=== PATIENT | male | born 1955 | race Hispanic/Latino ===

== ENCOUNTER 2019-08-09 12:41 | Observation (INO) | payer SELFPAY ==
[~2019-08-09] VITALS: Ht 160 cm; Wt 77.9 kg
[2019-08-09] MEDS ORDERED: ASPIRIN 325 MG TABLET ONE (12:53)
[2019-08-09 13:29] LABS: BASOPHILS % (AUTO) 0.3 % (0.0-5.0); EOSINOPHILS % (AUTO) 2.4 % (0.0-8.0); HEMATOCRIT 44.6 % (42-54); LYMPHOCYTES % (AUTO) 24.2 % (21.0-51.0); MEAN CORPUSCULAR HEMOGLOBIN 29.2 pg (27.0-33.0); MEAN CORPUSCULAR HGB CONC 33.6 g/dL (32.0-36.0); MEAN CORPUSCULAR VOLUME 86.8 fL (79-99); MONOCYTES % (AUTO) 8.7 % (3.0-13.0); NEUTROPHILS % (AUTO) 64.1 % (40.0-77.0); PLATELET COUNT (AUTO) 164 K/uL (130-400); RED BLOOD CELL COUNT(AUTO) 5.14 MIL/uL (4.50-6.20); RED CELL DISTRIBUTION WIDTH 12.5 % (11.0-15.5); WHITE BLOOD COUNT (AUTO) 7.5 K/uL (4.8-10.8)
[2019-08-09 13:33] LABS: CREATININE 1.2 mg/dL (0.5-1.5); POTASSIUM 3.8 mmol/L (3.5-5.1)
[2019-08-09 13:38] LABS: ALBUMIN 3.5 g/dL (3.5-5.0); BILIRUBIN,TOTAL 0.3 mg/dL (0.2-1.0); INR 0.87 (0.85-1.15); PARTIAL THROMBOPLASTIN TIME 25.8 SEC (26.3-35.5); PROTHROMBIN TIME 9.4 SEC (9.6-11.6); TOTAL PROTEIN, SERUM 6.6 g/dL (6.0-8.3)
[2019-08-09 13:39] LABS: AMPHET/METH SCREEN,URINE NEGATIVE (NEGATIVE); BARBITURATE SCREEN, URINE NEGATIVE (NEGATIVE); BENZODIAZEPINES SCREEN,URINE NEGATIVE (NEGATIVE); CANNABINOID SCREEN,URINE NEGATIVE (NEGATIVE); COCAINE SCREEN,URINE NEGATIVE (NEGATIVE); OPIATE SCREEN,URINE NEGATIVE (NEGATIVE); PHENCYCLIDINE SCREEN,URINE NEGATIVE (NEGATIVE)
[2019-08-09] MEDS ORDERED: NITROGLYCERIN 1GM/1 INCH PACKET TD ONE (13:57)
[2019-08-09] MEDS ORDERED: MORPHINE SULFATE 2 MG/ML 1ML SYG IVP PRN (15:15)
[2019-08-09] MEDS ORDERED: IPRATROPIUM/ALBUTEROL SULFATE 3 ML SOLUTION IH PRN (15:15)
[2019-08-09] MEDS ORDERED: ACETAMINOPHEN 325 MG TAB PO PRN (15:15)
[2019-08-09] MEDS ORDERED: TRAMADOL HCL 50 MG TABLET PO PRN (15:15)
[2019-08-09] MEDS: SODIUM CHLORIDE 0.9% 1000ML 1,000 ML IV SCH (15:23)
[2019-08-09] MEDS: NICOTINE 14 MG/ 24 HR PATCH TD SCH (16:00)
[2019-08-09 16:30] LABS: HEMOGLOBIN A1C 7.6 % (4.0-6.0)
[2019-08-09] MEDS: INSULIN HUMULIN R 100 UNIT/ML 3ML SQ SCH ×2 (16:30→21:00)
[2019-08-09 16:42] LABS: CHOLESTEROL 228 mg/dL (<200); HDL CHOLESTEROL 107 mg/dL (29-71); LDL DIRECT 138 mg/dL (0-99); THYROID STIMULATING HORMONE 2.03 uIU/mL (0.36-3.74); TRIGLYCERIDES 491 mg/dL (30-200)
--- NOTE | 2019-08-09 17:00 | NUR ---
Patient arrived to unit in no apparent distress, no cp, no n/v. Dr Hernandez is aware of the patient. Will continue to monitor. Addendum: 08/09/19 at 1806 by BONNIE LIU RN Amended: Links added. Addendum: 08/09/19 at 1808 by BONNIE LIU RN Amended: Links added.
[2019-08-09 18:40] VITALS: BP 137/73
[2019-08-09 19:00] VITALS: BP 136/65
[2019-08-09] MEDS ORDERED: NITROGLYCERIN 0.4 MG SL TAB SL PRN (19:30)
[2019-08-09] MEDS ORDERED: GLYB1TAB30 PO (19:52)
[2019-08-09] MEDS ORDERED: ENAL10TA PO (19:52)
[2019-08-09] MEDS ORDERED: ISOSORBIDE MONO 30MG TAB SR PO SCH (20:40)
[2019-08-09] MEDS ORDERED: METOPROLOL TARTRATE 25 MG TAB PO SCH (21:00)
[2019-08-09] MEDS ORDERED: ATORVASTATIN CALCIUM 20 MG TABLET PO SCH ×2 (21:00)
[2019-08-09] MEDS ORDERED: FENOFIBRATE NANOCRYSTALLIZED 48 MG TAB PO SCH (21:00)
[2019-08-09] MEDS: FISH OIL 1000 MG/CAP PO SCH (21:27)
[2019-08-09] MEDS: METOPROLOL TARTRATE 25 MG TAB PO SCH (21:28)
[2019-08-09] MEDS: FAMOTIDINE 20MG TAB 20 MG TAB PO SCH (21:28)
[2019-08-09 23:00] VITALS: BP 124/69
[2019-08-10 03:00] VITALS: BP 120/71
[2019-08-10] MEDS: INSULIN HUMULIN R 100 UNIT/ML 3ML SQ SCH ×3 (06:46→16:08)
[2019-08-10 07:00] VITALS: BP 143/65
[2019-08-10] MEDS ORDERED: Isosorbide Mono 30MG Tab Sr PO (07:33)
[2019-08-10] MEDS ORDERED: NICO-704 TD (07:33)
[2019-08-10] MEDS ORDERED: METO-391 PO (07:33)
[2019-08-10] MEDS ORDERED: ASPI-1005 PO (07:33)
[2019-08-10] MEDS ORDERED: ATOR20TA65 PO (07:33)
[2019-08-10] MEDS ORDERED: Nitroglycerin 0.4MG Sl Tab SL (07:33)
[2019-08-10] MEDS ORDERED: ISOSORBIDE MONO 30MG TAB SR PO SCH (09:00)
[2019-08-10] MEDS ORDERED: NITROGLYCERIN 0.2 MG/HR PATCH TD SCH (09:00)
[2019-08-10] MEDS ORDERED: ENOXAPARIN SODIUM 40 MG/0.4 ML SYRINGE SQ SCH (09:00)
[2019-08-10] MEDS ORDERED: ASPIRIN 81MG TAB.CHEW PO SCH (09:00)
[2019-08-10] MEDS: FISH OIL 1000 MG/CAP PO SCH (09:11)
[2019-08-10] MEDS: METOPROLOL TARTRATE 25 MG TAB PO SCH (09:11)
[2019-08-10] MEDS: FAMOTIDINE 20MG TAB 20 MG TAB PO SCH (09:12)
[2019-08-10] MEDS: NICOTINE 14 MG/ 24 HR PATCH TD SCH (09:12)
[2019-08-10] MEDS: SODIUM CHLORIDE 0.9% 1000ML 1,000 ML IV SCH ×2 (09:16→16:08)
[2019-08-10 11:00] VITALS: BP 113/69
[2019-08-10 15:44] VITALS: BP 138/69
--- NOTE | 2019-08-10 16:00 | NUR ---
Patient discharged at this time in stable condition with no c/o cp, n/v, vertigo. He verbalized understanding of discharge instructions. PIV was removed. Prescriptions are in his possession.
--- NOTE | 2019-08-11 08:56 | NUR ---
CM NOTE PATIENT DISCHARGED, NO NEEDS VERBALIZED BY NURSING STAFF. Addendum: 08/11/19 at 0857 by SHERRY CRUZ RN CM Amended: Links added.
== END 2019-08-10 16:00 | disposition home or self-care (01) ==
LOC: EDH 12:41 → EDHIP 12:42 → 4AH 17:13
PROVIDERS: ADMIT Internal Medicine; ATTEND Internal Medicine
DX: R07.89 Other chest pain (principal); I20.9 Angina pectoris, unspecified; E78.1 Pure hyperglyceridemia; I10 Essential (primary) hypertension; E78.5 Hyperlipidemia, unspecified; E11.51 Type 2 diabetes mellitus with diabetic peripheral angiopathy without gangrene; F17.200 Nicotine dependence, unspecified, uncomplicated; Z90.49 Acquired absence of other specified parts of digestive tract; Z79.82 Long term (current) use of aspirin; Z79.899 Other long term (current) drug therapy
CPT/HCPCS: 36415; 71045; 80053; 80061; 80305; 82550; 82948 ×4; 83036; 83880; 84145; 84443; 84484 ×3; 85025; 85610; 85730; 93005; 93306; 93356; 94664; 96372; 99285; G0378 ×25; J1650; J7030